=== PATIENT | male | born 1980 | race Caucasian/White ===

== ENCOUNTER 2020-09-23 10:36 | Emergency (ER) | payer OTHER ==
[~2020-09-23] VITALS: Ht 185.4 cm; Wt 74.8 kg
[2020-09-23 11:00] VITALS: BP 120/58
--- NOTE | 2020-09-23 11:00 | NUR ---
ED Nurse Note: Pt walked into ED for injury to L hand. Pt stapled hand today 1 hour ago and hand rope tourniquet on L arm. Tourniquet removed, no bleeding on hand or drainage. Pt pain 10/10. He is alert and orientedx4, ambulatory. L hand radial pulse 3+. Numbness and tingling on L hand.
[2020-09-23] MEDS ORDERED: Tetanus/Diptheria/Pertussis IM ONE (11:15)
[2020-09-23] MEDS ORDERED: Lidocaine 1% Plain 30 ml INJ ONE (11:15)
[2020-09-23] MEDS ORDERED: Bacitracin Oint UD TOPIC ONE (11:15)
[2020-09-23] MEDS ORDERED: Morphine Sulfate 4mg/ml Inj (IV USE ONLY) IVP ONE ×2 (11:15→12:00)
[2020-09-23] MEDS ORDERED: ceFAZolin sod 1 GM in NS 55 ML IVPB ONE (11:15)
[2020-09-23] MEDS ORDERED: HYDROmorphone 1mg/ml Carpuject IVP ONE (13:00)
--- NOTE | 2020-09-23 14:00 | NUR ---
clinicals face sheet and x-rays faxed to [facility]
[2020-09-23 14:10] VITALS: BP 124/55
--- NOTE | 2020-09-23 14:18 | Diagnostic Imaging Report ---
Clinical Indication:Foreign body due to nail gun accident, pain, trauma Technique: 3 views of the left wrist Comparison: None Findings: A linear metallic radiopaque foreign body extends into the lateral upper left wrist, probably extending through the trapezium and posteriorly entering the base of the second metacarpal. It may also raise the anterolateral corner of the first metacarpal. There is no quickly slight disruption of the posterior cortex of the second metacarpal on the lateral view, although this is not well visualized. Suspect artifactual although fracture possible. Impression: Positive for linear metallic radiopaque foreign body, as described, appearing to extend through the trapezium, second metacarpal, and possibly grazing the cortex of the first metacarpal. Doubt but cannot completely exclude fracture of the posterior cortex of the second metacarpal
--- NOTE | 2020-09-23 15:00 | NUR ---
patient has been accepted at [facility] by dr nelson . covid test requested and done
--- NOTE | 2020-09-23 15:43 | Emergency Room Report ---
History of Present Illness General Chief Complaint: Upper Extremity Injury Source: Patient Present Illness HPI Patient presents after impaling himself with a nail gun in the left wrist. This was a 3 1/4" finishing nail. The glove is stuck to the nail. He has more pain on the palmar surface - thenar area - than the dorsal surface where the nail entered. Patient is uncertain when his last tetanus vaccination was. He states the pain is severe at this time. He denies any numbness in the fingers. He is right-handed. No significant bleeding Patient denies other medical problems. Patient denies fevers or chills. In retrospect (after COVID +) he states he had a "cold" 3 weeks ago. No chest pain, shortness of breath, weakness, diarrhea or body aches. Allergies: Coded Allergies: No Known Allergies (Unverified , 09/23/20) COVID-19 Screening Contact w/high risk pt: No Experienced COVID-19 symptoms?: No COVID-19 Testing performed CASKET UPHOLSTERER: No Patient History Past Medical History: none Past Surgical History: none Social History: Reports: smoking - vape; Denies: drug use Social History Narrative Was working at home Reviewed Nursing Documentation: PMH: Agreed; PSxH: Agreed Nursing Documentation-PMH Past Medical History: No Stated History Review of Systems Constitutional: Reports: see HPI ENT: Denies: throat pain Respiratory: Reports: see HPI Cardiovascular: Denies: chest pain Gastrointestinal: Reports: see HPI Musculoskeletal: Reports: see HPI Skin: Reports: see HPI Neurological: Reports: see HPI Hematologic/Lymphatic: Reports: see HPI Physical Exam Vital Signs Date Time Temp Pulse Resp B/P (MAP) Pulse Ox O2 Delivery O2 Flow Rate FiO2 09/23/20 10:53 97.2 72 19 101/54 (70) 99 Room Air Sp02 EP Interpretation: reviewed, normal General Appearance: well appearing, no apparent distress, GCS 15 Head: normocephalic Eyes: bilateral eye normal inspection, bilateral eye PERRL, bilateral eye EOMI ENT: moist mucus membranes Neck: full range of motion, supple Respiratory: normal inspection Cardiovascular #1: regular rate, rhythm Cardiovascular #2: 2+ radial (R), 2+ radial (L) - Good capillary fill Gastrointestinal: normal inspection Musculoskeletal: back normal, normal range of motion, gait/station normal, other - Left impaled to left wrist and hand glove. When removed fingers have good range of motion except there is pain when the thumb is moved. Neurologic: alert, distal neuro normal, oriented x3 Psychiatric: mood/affect normal Skin: warm/dry, other - End of nail protruding from dorsum of left wrist Medical Decision Making Diagnostic Impression: Primary Impression: Foreign body of left wrist Additional Impression: COVID-19 virus detected ER Course Patient presents with nail impaling left wrist. He is in severe pain. IV will be established and morphine and Zofran will be administered. In addition the patient will receive a dose of Ancef. We need to work to remove the foreign object if we can. Analgesia repeated. X-ray returns with a foreign body impaled in bone. Attempts regional block of median and radial nerves. Patient states that the pain is increased after this. The patient was evaluated by Dr. Zavala. Unable to remove nail. Requests general surgeon to see the patient. He states that this needs to go to the operating room. My early childhood specialist says that this needs a hand surgeon. The patient was presented to [facility]. They accepted the patient in transfer. Dr. Swain. Patient received a dose of Dilaudid 1 mg. Patient is wanting to eat and drink. Discussed that this may cause trouble if he needs to go to the operating room. He states he is just going to drink out of the sink. Patient given lemon glycerin swabs. Covid + test. Pain improved. Await transfer. Microbiology Date/Time Source Procedure Growth Status 09/23/20 15:03 Nasopharynx SARS-CoV-2 RdRp Gene Assay - Final Complete Other X-Ray Diagnostic Results Other X-Ray Diagnostic Results : X-Ray ordered: Left wrist # of Views/Limited Vs Complete: 3 View Indication: Other EP Interpretation: Yes Interpretation: no dislocation, no soft tissue swelling, no fractures, other - Foreign body in bone Impression: Other Electronically Signed by: Electronically signed by Zain Sanford MD Last Vital Signs Date Time Temp Pulse Resp B/P (MAP) Pulse Ox O2 Delivery O2 Flow Rate FiO2 09/23/20 19:22 97.2 09/23/20 16:09 81 19 126/58 100 Room Air Status: improved Disposition: SHORT-TERM HOSP Condition: Stable Referrals: [facility]REFERR[facility] (PCP) Zain Sanford MD Sep 23, 2020 15:43
--- NOTE | 2020-09-23 16:00 | NUR ---
covid test is positve [facility] has been notified
--- NOTE | 2020-09-23 16:02 | Consultation ---
History of Present Illness General Date patient seen: Sep 23, 2020 Reason for Hospitalization: Upper Extremity Injury Present Illness HPI This is a 40-year-old male who states he was working in his yard putting up a fence and impaled his left hand with a nail gun through his glove. States did recognize location he was hitting the nail and fortunately impaled himself. Varney significant pain throughout the majority of the glove but could not remove the nail and came emergency room for evaluation. Seen by emergency doctor and surgery called to eval and assist with care. Plain films reviewed. Patient had already begun using the surgical scissors to remove other portions of the nail from his hand. He was given local anesthetic pain medications and attempt was made for removal and therefore surgery was called to evaluate for potential removal given difficulty. Patient seen in the emergency room patient evaluated chart reviewed. Allergies: Coded Allergies: No Known Allergies (Unverified , 09/23/20) COVID-19 Screening Contact w/high risk pt: No Experienced COVID-19 symptoms?: No Patient History History Provided By: Patient, Medical Record, PMD Healthcare decision maker Resuscitation status Advanced Directive on File Past Medical/Surgical History Past Medical/Surgical History: (1) Foreign body of left wrist (2) COVID-19 virus detected Review of Systems Review of Symptoms General ROS: no weight loss or fever Psychological ROS: no depression or mood changes, no memory loss Ophthalmic ROS: no visual changes or eye irritation ENT ROS: no nasal congestion, hearing loss, dizziness Allergy and Immunology ROS: no allergic symptoms or urticaria Hematological and Lymphatic ROS: no swollen glands, unusual bleeding or bruising Endocrine ROS: no polyuria, polydipsia, weight changes, temperature intolerance Respiratory ROS: no cough, shortness of breath, or wheezing Cardiovascular ROS: no chest pain or dyspnea on exertion Gastrointestinal ROS: denies abdominal pain, bright red blood in stool. Musculoskeletal ROS: no myalgias or arthralgias Neurological ROS: no TIA or stroke symptoms Dermatological ROS: no new or changing skin lesions, rashes or pruritis Physical Exam Physical Exam General appearance: alert, cooperative, no distress, appears stated age Head: Normocephalic, without obvious abnormality, atraumatic Eyes: conjunctivae/corneas clear. PERRL, EOM's intact. Fundi benign Throat: Lips, mucosa, and tongue normal. Teeth and gums normal Neck: supple, symmetrical, trachea midline, no adenopathy, thyroid: not enlarged, symmetric, no tenderness/mass/nodules, no carotid bruit and no JVD Lungs: clear to auscultation bilaterally Heart: regular rate and rhythm, S1, S2 normal, no murmur, click, rub or gallop Abdomen: soft, non-tender. Bowel sounds normal. No masses, no organomegaly Extremities: extremities trauma left hand nail Pulses: 2+ and symmetric Skin: Skin color, texture, turgor normal. No rashes or lesions Neurologic: Grossly normal Last 24 Hour Vital Signs Date Time Temp Pulse Resp B/P (MAP) Pulse Ox O2 Delivery O2 Flow Rate FiO2 09/23/20 11:43 97.2 09/23/20 11:00 97.2 76 20 120/58 98 Room Air 09/23/20 10:53 97.2 72 19 101/54 (70) 99 Room Air Microbiology Date/Time Source Procedure Growth Status 09/23/20 15:03 Nasopharynx SARS-CoV-2 RdRp Gene Assay - Final Complete Height (Feet): 6 Height (Inches): 1.00 Weight (Pounds): 165 Assessment/Plan Problem List: (1) Foreign body of left wrist Assessment & Plan: 40-year-old male impaled nail into the left hand using a nail gun while working outdoors fixing a fence Images reviewed likely in bone Patient was already given local prior and pain medication. The hand was cleansed and prepped. Patient already began cutting the glove off and majority was removed. With a little pressure the glove was removed. The nail was identified. With patient's permission a grasper was used and gentle pressure was used to see if the nail could be removed. Unfortunately it impaled pretty deep into the hand. Given its likely gone through bone and the complicated care recommend transfer to a trauma center with higher level of care for evaluation by Ortho hand surgery. Patient given dose of IV antibiotics. Tetanus. Pain medication. Site clean dressings applied patient awaiting potential transfer. Will monitor if in-house. Thank you for letting participate patient's care. ICD Codes: S60.852A - Superficial foreign body of left wrist, initial encounter SNOMED: 613345498, 504332047 (2) COVID-19 virus detected ICD Codes: U07.1 - COVID-19 SNOMED: [id number], [id number] Rashid Sanchez Sep 23, 2020 16:02
[2020-09-23 16:09] VITALS: BP 126/58
--- NOTE | 2020-09-23 16:10 | NUR ---
HAND-OFF: Report given to Edouard JEROME.
--- NOTE | 2020-09-23 16:22 | NUR ---
ED Nurse Note: received report from adriana lomeli.
[2020-09-23] MEDS ORDERED: Hydromorphone 0.5mg/0.5ml inj IVP ONE (19:00)
--- NOTE | 2020-09-23 19:08 | NUR ---
HAND-OFF: Report given to adriana rivera.
--- NOTE | 2020-09-23 19:23 | NUR ---
ED Nurse Note: Report received from LEA JEROME Patient awake on bed, pain 2/
--- NOTE | 2020-09-23 21:45 | NUR ---
ED Nurse Note: Report given DONNA JEROME at [facility]
[2020-09-23 22:00] VITALS: BP 126/58
--- NOTE | 2020-09-23 22:00 | NUR ---
ER DISCHARGE NOTE: Patient is picked up by [facility] ambulance going to [facility]. Pts packet and report given to ambulance personnel. Patient is cleared to be transferred per ERMD, pt is aox4, on room air, with stable vital signs. pt id band and iv site endorsed without complications. pt is able to ambulate with steady gait to the [facility]. pt took all belongings. pt is transferred safely to the ambulance
== END 2020-09-23 22:00 | disposition short-term general hospital (02) ==
LOC: EMR 12:14
DX: S60.852A Superficial foreign body of left wrist, initial encounter (principal); U07.1 COVID-19; F17.200 Nicotine dependence, unspecified, uncomplicated; W29.4XXA Contact with nail gun, initial encounter; Y93.89 Activity, other specified; Y92.9 Unspecified place or not applicable
CPT/HCPCS: 73110; 90471; 90715; 96365; 96375; 96376; J0690; J1170; J2001; J2270; J2405; U0002; Z7502; 99285